=== PATIENT | female | born 1935 | race Caucasian/White ===

== ENCOUNTER 2017-06-01 06:48 | Day surgery (SDC) | payer MEDICARE, BC ==
[~2017-06-01 06:48] MED LIST: RINGERS SOLUTION,LACTATED 1,000 ML IV PRN
[2017-06-01] MEDS ORDERED: RINGERS SOLUTION,LACTATED 1,000 ML IV ONE (07:45)
[2017-06-01] MEDS ORDERED: RINGERS SOLUTION,LACTATED 1,000 ML IV PRN (08:19)
[2017-06-01 09:21] VITALS: BP 119/97
--- NOTE | 2017-06-01 14:10 | OR ---
Operative Report - Dictated Report Narrative: OPERATIVE REPORT DATE OF OPERATION: 06/01/2017 PREOPERATIVE DIAGNOSIS: History of colon polyp. No recent dedicated colon studies POSTOPERATIVE DIAGNOSIS: Normal colonoscopy OPERATION: Colonoscopy SURGEON: Nat Cao MD ANESTHESIA: MARLYS Chaidez CRNA INDICATIONS FOR PROCEDURE: The patient is an 82-year-old female referred by Dr. Dr. Dougherty. She had a tubular adenoma removed in 2004 and a hyperplastic polyp removed in 2006. She has had no subsequent colon surveillance. There is no family history of colon cancer. The patient is currently asymptomatic FINDINGS: Normal colonoscopy to the cecum NARRATIVE OF PROCEDURE: The patient was identified in the holding area, and prior to the administration of anesthetic, a multidisciplinary timeout was observed. With the patient in the left lateral position and after the administration of intravenous sedation, the perineum was inspected. There was no evidence of pilonidal disease or skin breakdown. The external appearance of the anus was normal. Sphincter tone was good. The flexible fiberoptic colonoscope was inserted into the rectum which was insufflated with air. The rectal mucosa and submucosal vascular pattern appeared normal, the prep was seen to be complete. The scope was advanced through the sigmoid colon, up the descending colon, and around the splenic flexure where the triangular haustral architecture of the transverse colon was seen. The scope was advanced across the transverse colon, around the hepatic flexure to the cecum, where the confluence of tenia and the ileocecal valve were identified. The mucosa at this level appeared normal. The scope was then slowly withdrawn in a circular fashion so that all aspects of colonic mucosa were inspected. The colon was normal in course and caliber. The haustral architecture appeared well preserved throughout with no evidence of external compression. The mucosa and submucosal vascular pattern appeared normal, specifically there was no gross evidence to suggest colitis or inflammatory bowel disease and no AV malformations were seen. No diverticulosis was demonstrated. No polyps were encountered. The scope was gradually withdrawn to the level of the rectum. As much insufflated air as possible was removed. The scope was withdrawn from the patient and the procedure terminated. The patient tolerated the anesthetic and procedure well without complication and was transferred back to the ambulatory surgery area awake and in stable condition. The patient remained stable throughout a period of postoperative observation. She denied abdominal discomfort, was able to tolerate by mouth intake, and was up without assistance. I shared the operative findings with the patient and she was given copies of the photographs which appear in the medical record. She was discharged home with instructions not to engage in hazardous activity today , but may resume normal activity tomorrow, advance diet as tolerated. She is to continue those medications as listed in the history and physical exam. RECOMMENDATION: Colon surveillance in 10 years depending upon findings and symptoms Reviewed and electronically signed
== END 2017-06-01 06:49 | disposition home or self-care (01) ==
LOC: AMB 06:48
PROVIDERS: ATTEND Surgery
PROC: 0DJD8ZZ Inspection of Lower Intestinal Tract, Via Natural or Artificial Opening Endoscopic (ICD-10-PCS; principal; 2017-06-01 08:00)
DX: Z12.11 Encounter for screening for malignant neoplasm of colon (principal); I10 Essential (primary) hypertension; E78.5 Hyperlipidemia, unspecified; E03.9 Hypothyroidism, unspecified; K21.9 Gastro-esophageal reflux disease without esophagitis; Z68.24 Body mass index [BMI] 24.0-24.9, adult; Z86.010 Personal history of colon polyps

== ENCOUNTER 2018-07-21 08:00 | Inpatient (IN) | payer BC, MEDICARE ==
--- NOTE | 2018-07-14 12:06 | ANES ---
Anesthesia Pre Procedure Eval HOME MEDICATIONS Aspirin [Aspirin Enteric Coated] 81 mg PO DAILY 05/18/17 [Last Taken Unknown] Cholecalciferol (Vitamin D3) [Vitamin D] 2,000 unit PO DAILY 05/18/17 [Last Taken Unknown] Fluticasone Propionate [Flonase] 2 spray NS DAILY 05/18/17 [Last Taken Unknown] Hydrochlorothiazide [Hydrodiuril] 25 mg PO DAILY 05/18/17 [Last Taken Unknown] Levothyroxine Sodium [Synthroid] 75 mcg PO DAILY 05/18/17 [Last Taken Unknown] Loratadine [Claritin] 10 mg PO DAILY 05/18/17 [Last Taken Unknown] Multivitamins [Multivitamin Rosette] 1 cap PO DAILY 05/18/17 [Last Taken Unknown] Omeprazole [Prilosec] 20 mg PO DAILY 05/18/17 [Last Taken Unknown] Simvastatin [Zocor] 20 mg PO DAILY 05/18/17 [Last Taken Unknown] Wheat Dextrin [Benefiber] 1 tbs PO DAILY 05/18/17 [Last Taken Unknown] acetaminophen 325 mg tablet 650 mg PO TID tab 07/06/18 [Last Taken Unknown] Allergies/Adverse Reactions: Allergies Allergy/AdvReac Type Severity Reaction Status Date / Time No Known Allergies Allergy Verified 07/14/18 09:14 - Planned Procedure Planned Procedure: Left Total Hip Arthroplasty Medication List Reviewed:: Yes Allergies Verified: Yes Medical History (Last Reviewed 07/14/18 @ 12:03 by Judd Alexandra CRNA) No history of alcohol use Non-tobacco user Wears dentures Wears glasses Flowers esophagus Onset Date: ~2004 GERD (gastroesophageal reflux disease) Onset Date: Unknown Hip pain Onset Date: Unknown Hyperlipidemia Onset Date: Unknown Hypertension Onset Date: Unknown Hypothyroidism Onset Date: Unknown Seasonal allergies Onset Date: Unknown Melanoma Onset Date: Unknown Surgical History (Last Reviewed 07/14/18 @ 12:03 by Judd Alexandra CRNA) Colonoscopy planned Onset Date: ~2016 Encounter for removal of skin lesion Onset Date: ~03/2016 H/O cystoscopy Onset Date: ~2010 H/O vaginal surgery Onset Date: ~04/02/11 History of appendectomy Onset Date: ~1979 History of bladder surgery Onset Date: ~04/02/11 History of cholecystectomy Onset Date: Unknown History of esophagogastroduodenoscopy (EGD) Onset Date: ~2010 History of total abdominal hysterectomy Onset Date: Unknown Hx of cataract surgery Onset Date: ~2015 S/P colon resection Onset Date: Unknown Tonsillectomy planned Onset Date: ~194 Uterosacral ligament fixation Onset Date: ~04/02/11 Family History (Last Reviewed 07/14/18 @ 12:03 by Judd Alexandra CRNA) Brother Leukemia Daughter Diabetes Father CVA (cerebral vascular accident) Cancer Mother CAD (coronary artery disease) Sister Cancer - Family Anesthesia History Family History:: no untoward family reactions to anesthesia, no familial bleeding tendencies, no family history of clotting disorders, no family history of premature - Airway/Neck/Teeth Within Normal Limits:: Yes Denture Type: Full- Upper & Lower Neck Exam: non-tender, full range of motion Mallampatti Score: 1 Thyromental (T-M) distance: > 6 cm Mandibulo Hyoid distance: > 3 cm - Respiratory Respiratory: chest non-tender, lungs clear, normal breath sounds, no respiratory distress Smoking Status: Never smoker Sleep Apnea currently treated: No Sleep Apnea by current assessment: No - Cardiovascular Patient History - Cardiac/Respiratory: Hypertension Tolerates Activity: Fair Heart Sounds: S1 & S2, Regular - Anesthesia Assessment and Plan ASA Class: PS, II Anesthesia Type Plan: Spinal Planned difficult intubation/equipment available: No
[~2018-07-21 08:00] MED LIST changes: -RINGERS SOLUTION,LACTATED 1,000 ML IV PRN; +ROPIVACAINE HCL/PF 100 MG, EPINEPHrine 0.2 MG, KETOROLAC TROMETHAMINE 15 MG in NORMAL S... IJ PRN; +ceFAZolin SODIUM 1 GM VIAL IV PRN
[2018-07-21] MEDS ORDERED: TRANEXAMIC ACID 1,000 MG in NORMAL SALINE 100 ML IV ONE (09:04)
[2018-07-21] MEDS ORDERED: MORPHINE SULFATE 15 MG TABLET.SA PO SCH (09:15)
[2018-07-21] MEDS: RINGER'S SOLUTION,LACTATED 1,000 ML IV PRN ×3 (09:41→15:00)
[2018-07-21] MEDS ORDERED: ONDANSETRON HCL/PF 2 MG/ML VIAL IV PRN (12:43)
[2018-07-21] MEDS ORDERED: ZOLPIDEM TARTRATE 5 MG TABLET PO PRN (12:43)
[2018-07-21] MEDS ORDERED: MORPHINE SULFATE 2 MG/ML DISP.SYRIN IV PRN (12:43)
[2018-07-21] MEDS ORDERED: MAGNESIUM HYDROXIDE 30 ML UDC PO PRN (12:43)
[2018-07-21] MEDS ORDERED: DEXTROSE 5%-LACTATED RINGERS 1,000 ML IV PRN (12:43)
[2018-07-21] MEDS ORDERED: MAG HYDROX/ALUMINUM HYD/SIMETH 30 ML UDC PO PRN (12:43)
[2018-07-21] MEDS ORDERED: ACETAMINOPHEN 500 MG TABLET PO PRN (12:43)
[2018-07-21] MEDS ORDERED: diphenhydrAMINE HCL 50 MG/ML VIAL IV PRN (12:43)
--- NOTE | 2018-07-21 12:43 | OR ---
Operative Report - Dictated Report Narrative: Date: 07/21/2018 Preoperative diagnosis: Left hip degenerative joint disease. Postoperative diagnosis: Left hip degenerative joint disease. Procedure: Left Total hip arthroplasty. Surgeon: Gelacio Shelley M.D. Mold Design Engineer: Siddhartha Thomas PA-C Anesthesia: Spinal and local periarticular joint injection. Complications: None Specimens: Bone for disposal. Estimated blood loss: 150 milliliters. Retained implants: Depuy [place] size 3 femoral stem standard offset. Size 48 millimeter outside diameter 3-hole [place] Gription acetabular cup. 48 millimeter outside by 32 millimeter inside diameter highly cross-linked acetabular liner. 32 millimeter diameter +1.5 millimeter cobalt chromium femoral head. Cancellous 6.5mm screw 30 millimeter length Indications: Mrs. Ann is a 83-year-old female who has had long-standing left hip pain and arthrosis. This patient was followed in my clinic for period of time with significant complaints of left hip pain consistent with arthritic changes. She failed conservative measures including but not limited to activity modification, passage of time, medications, and other conservative measures. Patient wished to proceed with surgical treatment. The risks, benefits, and alternatives were discussed in clinic. The risks of , blood clots, bleeding, infection, nerve/tendon blood vessel/ injury, malposition of components, dislocation and/or instability of joint, intraoperative fracture, postoperative limited range of motion, persistent pain, failure of components, and need for additional procedures. Patient wished to proceed. Consent was obtained after answering all questions. Procedure: After marking the correct extremity on the floor, the patient was taken to the operating room. A timeout was performed. IV antibiotics consisting of Ancef were administered prior to the procedure. A spinal anesthetic was induced by anesthesia. A Lu catheter was inserted. The patient was then transitioned to a lateral position on a well-padded pegboard. An axillary roll was placed. The head was in neutral position. The non- operative down leg was well-padded with SCD and ANGELIKA hose in place. The arms were supported and padded to protect from any undue pressure on the bony prominences and nerves. A well-padded anterior and posterior pelvic and chest posts were secured in order to maintain a stable position of the pelvis. This was placed so that the pelvis was perpendicular to the floor. The body was in line with the pelvis. Once it was felt that we had protected all the bony prominences and the patient was well secured with a safety belt as well, the leg was pre-scrubbed with alcohol, prepped and draped in a standard sterile fashion. A standard anterior lateral hip incision was marked out over the greater trochanter. Ioban drapes were then placed. The skin incision was then made. Sharp dissection with a scalpel utilizing cautery for hemostasis was carried out down to the gluteus and iliotibial band fascia. This was split in line with the skin incision. The greater trochanter bursa was excised. The anterior and posterior margins of the abductor tendon were identified. The anterior 1/2-1/3 of the tendon was tagged and reflected off the greater trochanter leaving a sleeve of tendon for repair at the completion of the case. This exposed the underlying hip joint capsule. A limb length stitch was placed in the skin and referencedd off a laury on the greater trochanter for evaluation of intraoperative limb lengths. An inverted T-type capsulotomy was made extending this up to the brim of the acetabulum. Using Homans to assist with elevation of the soft tissues off the anterior, superior, and inferior aspects of the femoral neck, the hip was then placed in a figure 4 position and the femoral head was dislocated. With the leg in an externally rotated and adducted position, the cutting flag was utilized in order to laury for a standard femoral neck cut approximately a fingerbreadth above the level of the lesser trochanter. This was done with reference to pre-operative films and overall alignment. This was done while protecting the surrounding soft tissues with Homans. The femoral head was then removed and sized for guidance on preparation of the acetabulum. It was noted that there was loss of articular cartilage on both the femoral head and weightbearing portions of the acetabulum. We then returned the leg to the table and turned our attention to the acetabulum. While protecting the surrounding soft tissues, the labrum and remaining tissue in the fovea were excised using a scalpel and cautery. A series of reamers up to size 48 millimeter were utilized to prepare the acetabulum. The final reamer had good purchase and exposed the bleeding subchondral bone. The acetabulum was then thoroughly irrigated ensuring that all bony and cartilaginous materials were removed, and the final acetabular shell was impacted into place. This was placed in approximately 45 degrees of abduction and 20 degrees of anteversion utilizing the outrigger and body axis for alignment. This had a good press fit. 1 6.5mm cancellous screw was placed in the superior posterior quadrant of the acetabulum. The shell was then thoroughly irrigated and the final polyethylene was impacted into place ensuring that it seated completely. This was then protected with a sponge while we returned our attention to the femur. With the leg in a figure 4 position, utilizing Homans for soft tissue protection , a box cutting osteotome, followed by Charnley awl, followed by serial reamers and broaches were utilized in order to prepare the femur. It was found that a size 3 broach gave good axial and rotational stability. The calcar reamer was utilized in order to clean up the cut edges. The proximal femur was visualized to ensure that there were no signs of fracture. A series of heads and necks were trialed. It was found that a standard neck and a + 1.5 femoral head gave good overall stability. There was minimal longitudinal instability. With the leg in the position of sleep, the femoral head was well covered. Hip range of motion was able to reach full extension and external rotation to greater than 75 degrees prior to impingement along the posterior acetabulum. The hip was able to be flexed to greater than 90 degrees with internal rotation greater than 60 degrees prior to anterior impingement. The limb lengths were near equal based on comparison to the contralateral side and the prior placed limb length stitch. At this point it was felt these were the appropriately sized femoral components as well as neck and femoral head. The trial implants were removed. The femur was thoroughly irrigated. The final implants were impacted into place, and the hip was reduced. After ensuring that there was no damage to the proximal femur , the standard periarticular joint injection of ropivacaine, Toradol, and epinephrine were injected into the joint capsule and surrounding soft tissues. Anesthesia then administered intravenous tranexamic acid. The capsule was repaired with a single interrupted #1 Vicryl. The abductor tendon was repaired to the greater trochanter utilizing #5 Ethibond through drill holes. This was oversewn with #1 Vicryl. The fascia was closed with interrupted #1 Vicryl. The wounds were thoroughly irrigated as we closed in layers. The deep and subcutaneous fat layers were closed with 0 and 3-0 Vicryl respectively. The subcutaneous tissue was closed with a running 3-0 Vicryl and the skin with katherine. All sponge, needle, blade, and instrument counts were correct prior to closing the wounds. Sterile dressings consisting of Xeroform, 4 x 4's, and tape were applied. The patient was awoken and transferred to her hospital bed and then to the postanesthesia care unit in stable condition. Postoperative condition: The plan is to admit to the medical/surgical inpatient floor postoperatively. There will be a projected 1 to 3 day hospital stay. Postoperatively 24 hours of IV antibiotics, pain control, physical therapy, occupational therapy, and medical comanagement will be utilized. Patient will be weightbearing as tolerated with anterior hip precautions. Postoperative films will be obtained in the recovery room.
--- NOTE | 2018-07-21 12:58 | ANES ---
Post Anesthesia Discharge - Transfer of Care Transfer of Care handoff given to nurse: Yes - Discharge from PACU Discharge from PACU when meets criteria: Yes - Comfortable and alert
--- NOTE | 2018-07-21 13:39 | ANES ---
Post Anesthesia Assessment - Vital Signs Vitals: Last Vital Signs Temp 36.8 C 07/21/18 12:55 Pulse 60 07/21/18 13:25 Resp 12 07/21/18 13:25 BP 94/56 07/21/18 13:25 Pulse Ox 96 07/21/18 13:25 Airway Patency: Normal - Mental Status Level Of Consciousness: Awake, Alert, Appropriate - Pain Level Pain Score: 0 - N/V Assessment Nausea/Vomiting Presence: None Dehydration:: No
[2018-07-21] MEDS: KETOROLAC TROMETHAMINE 15 MG/ML VIAL IV SCH ×2 (13:57→20:30)
[2018-07-21] MEDS: ceFAZolin SODIUM 1 GM in DEXTROSE 5 % IN WATER 100 ML IV SCH ×4 (16:39→21:17)
[2018-07-21] MEDS: oxyCODONE HCL/ACETAMINOPHEN 1 TAB TABLET PO PRN (18:56)
[2018-07-21] MEDS: SENNOSIDES/DOCUSATE SODIUM 1 TAB TABLET PO SCH (20:30)
[2018-07-21] MEDS: SIMVASTATIN 20 MG TABLET PO SCH (20:30)
[2018-07-22] MEDS: KETOROLAC TROMETHAMINE 15 MG/ML VIAL IV SCH ×4 (01:19→20:05)
[2018-07-22] MEDS: ceFAZolin SODIUM 1 GM in DEXTROSE 5 % IN WATER 100 ML IV SCH ×2 (04:46)
[2018-07-22 05:34] LABS: Hematocrit 31.3 % (37.0-47.0); Hemoglobin 10.3 gm/dL (12.5-16.0); Mean Cell Volume 92.9 fl (78-100); Mean Corpuscular Hemoglobin 30.6 pg (27-31); Mean Corpuscular Hgb Conc 32.9 g/dl (32-36); Mean Platelet Volume 9.8 fl (8-12.5); Platelet Count 179 K/mm3 (150-450); Red Blood Count 3.37 M/mm3 (4.2-5.4); Red Cell Distribution Width 12.9 % (11.5-14.0); White Blood Count 9.5 K/mm3 (4.0-10.5)
[2018-07-22 05:47] LABS: Anion Gap 8.7 mmol/L (6.8-13.8); Calcium * 8.1 mg/dL (7.9-10.9); Carbon Dioxide 31.1 mmol/L (24-32.6); Estimated Creat Clear 41.2; Potassium 3.8 mmol/L (3.4-4.6)
[2018-07-22] MEDS: LEVOTHYROXINE SODIUM 75 MCG TABLET PO SCH (07:02)
--- NOTE | 2018-07-22 08:40 | PN ---
Subjective - Date and Time Seen Date: 07/22/18 Time: 08:36 Subjective Narrative: Subjective: Reports no pain yesterday but some mild discomfort today in the hip. Was able to walk in the room with therapy. Pain is well-controlled. Voiding without any complications. Tolerating by mouth intake. Denies any nausea or vomiting. Denies calf pain. Slept well. Physical exam: Alert and oriented to person, place and time Left lower Extremity: Palpable dorsalis pedis pulse. Sensation grossly intact to light touch. Dressings clean and dry. Able to flex and extend ankle and toes. No excessive drainage. Calf and thigh are soft and nontender. Assessment: Postop day 1 status post left total hip arthroplasty. Plan: Due to the need for pain control, post-operative limited mobility, protection of the surgical site and joint, monitoring of the wound, and the management of chronic medical conditions, she requires continued inpatient care. Continue with physical and occupational therapy weightbearing as tolerated. Continue with anticoagulation. 24 hours postoperative prophylactic antibiotics. Pain control with goal to rely on oral medications. Continue bowel regimen. Will need 6 weeks with walker or assitive device to protect joint while ambulating during the recovery process. Discharge planning. Discontinue Lu catheter. Objective - Vitals Vitals: Last Vital Signs Temp 36.8 C 07/22/18 08:31 Pulse 67 07/22/18 08:31 Resp 16 07/22/18 08:31 BP 120/47 07/22/18 08:31 Pulse Ox 96 07/22/18 08:31 - Abnormal Lab Findings Abnormal Lab Findings: Abnormal Lab Results 07/22/18 07/22/18 Range/Units 05:26 05:26 RBC 3.37 L (4.2-5.4) M/mm3 Hgb 10.3 L (12.5-16.0) gm/dL Hct 31.3 L (37.0-47.0) % Chloride 96 L (97-106) mmol/L Random Glucose 111 H (70-110) mg/dL - Exam Constitutional: Present: Alert, Oriented x3 Cauti Physician Documentation - Urinary Catheter Management Urethral (Lu) Date of Insertion: 07/21/18 Time of Insertion: 11:10 Date of Removal: 07/22/18 Time of Removal: 07:08 Assessment/Plan - Problems/Diagnosis (1) Acute blood loss anemia Problem: Acute (2) Status post total hip replacement, left Problem: Acute (3) GERD (gastroesophageal reflux disease) Problem: Chronic (4) Hypertension Problem: Chronic (5) Hyperlipemia Problem: Chronic (6) Hypothyroid Problem: Chronic
[2018-07-22] MEDS: HYDROCHLOROTHIAZIDE 25 MG TABLET PO SCH (08:41)
[2018-07-22] MEDS: PSYLLIUM SEED 1 PACKET PACKET PO SCH (08:41)
[2018-07-22] MEDS: LORATADINE 10 MG TABLET PO SCH (08:41)
[2018-07-22] MEDS: FLUTICASONE PROPIONATE 120 SPRAY INHALER NS SCH (08:41)
[2018-07-22] MEDS: CHOLECALCIFEROL 1,000 UNIT CAPSULE PO SCH (08:42)
[2018-07-22] MEDS: MULTIVITAMINS 1 CAP CAPSULE PO SCH (08:42)
[2018-07-22] MEDS: ENOXAPARIN SODIUM 40 MG/0.4 ML SYRG SC SCH (11:15)
[2018-07-22] MEDS: oxyCODONE HCL/ACETAMINOPHEN 1 TAB TABLET PO PRN ×2 (12:56→20:07)
[2018-07-22] MEDS: SENNOSIDES/DOCUSATE SODIUM 1 TAB TABLET PO SCH (20:04)
[2018-07-22] MEDS: SIMVASTATIN 20 MG TABLET PO SCH (20:05)
[2018-07-23] MEDS: KETOROLAC TROMETHAMINE 15 MG/ML VIAL IV SCH ×2 (01:43→08:16)
[2018-07-23] MEDS: LEVOTHYROXINE SODIUM 75 MCG TABLET PO SCH (06:35)
[2018-07-23] MEDS: FLUTICASONE PROPIONATE 120 SPRAY INHALER NS SCH (08:19)
[2018-07-23] MEDS: CHOLECALCIFEROL 1,000 UNIT CAPSULE PO SCH (08:20)
[2018-07-23] MEDS: LORATADINE 10 MG TABLET PO SCH (08:20)
[2018-07-23] MEDS: PSYLLIUM SEED 1 PACKET PACKET PO SCH (08:20)
[2018-07-23] MEDS: MULTIVITAMINS 1 CAP CAPSULE PO SCH (08:20)
[2018-07-23] MEDS: HYDROCHLOROTHIAZIDE 25 MG TABLET PO SCH (08:20)
[2018-07-23] MEDS: ENOXAPARIN SODIUM 40 MG/0.4 ML SYRG SC SCH (12:22)
--- NOTE | 2018-07-23 14:23 | DS ---
(1) Degenerative joint disease of left hip Problem: Acute Qualifiers: Osteoarthritis type: primary Qualified Code(s): M16.12 - Unilateral primary osteoarthritis, left hip (2) Acute blood loss anemia Problem: Acute (3) Status post total hip replacement, left Problem: Acute (4) GERD (gastroesophageal reflux disease) Problem: Chronic (5) Hypertension Problem: Chronic (6) Hyperlipemia Problem: Chronic (7) Hypothyroid Problem: Chronic Description of Stay: Mrs. Ann was admitted to the floor after undergoing left total hip arthroplasty. Tolerated this well. Was admitted to the floor postoperatively for 24 hours of IV antibiotics, pain control, medical comanagement, and occupational and physical therapy. OT and PT were consulted to assist with activities of daily living and ambulation. Was made weightbearing as tolerated with range of motion as tolerated with anterior hip precautions. Pain was initially controlled with IV regimen. This was transitioned to oral once tolerating a by mouth intake. Was resumed on home diet and medications. Had a Lu catheter inserted and the operating room which was discontinued on postoperative day 1. Lovenox SCD and ANGELIKA hose were utilized for DVT prophylaxis. Vital signs remained stable to the hospital course. Serial labs were obtained which showed a final hemoglobin of 10.3 grams. BMP was reviewed and was stable. Physical examination throughout the hospital course showed an extremity that had sensation that was intact to light touch, palpable pulses, a benign wound, motor intact to the toes, ankle, and knee. Once an oral pain regimen was tolerated and physical therapy goals were met, it was felt that they were stable for discharge to home. Instructions: Continue with weightbearing as tolerated and range of motion as tolerated with anterior hip precautions. Keep incision clean and dry. If you note any drainage or for comfort you can cover with dry gauze and tape. Change every 2- 3 days as needed. Continue with physical therapy. Resume home diet. Report any fever over 101.5 Fahrenheit, uncontrolled pain, increased drainage, foul odor of drainage, new or increased calf pain or shortness of breath, or any other significant complaints. A 325mg dialy aspirin will be started after finishing anticoagulation if not allergic. Continue with ANGELIKA hose on the operative extremity until instructed otherwise. No driving until instructed otherwise. Follow up in approximately 10-14 days. Procedures Performed: see notes below List Procedures: Left total hip arthroplasty Results and Findings: Lab Pending Results 07/22/18 05:26: WBC 9.5, RBC 3.37 L, Hgb 10.3 L, Hct 31.3 L, MCV 92.9, MCH 30.6 , MCHC 32.9, RDW 12.9, Plt Count 179, MPV 9.8 07/22/18 05:26: Sodium 132, Plasma Sodium 132, Potassium 3.8, Chloride 96 L, Carbon Dioxide 31.1, Anion Gap 8.7, BUN 16, Creatinine 0.84, Est GFR (Non-Af Amer) 69, BUN/Creatinine Ratio 19.0, Random Glucose 111 H, Calcium 8.1 Discharge Location: Home Disposition: Home self-care Condition: Good Discharge Activity: Weight bearing - with anterior hip precautions Discharge Diet: Low salt, Low fat/chol Referrals: Armando Dougherty MD [Primary Care Provider] - Additional Patient Instructions (free text): Outpatient Physical Therapy at [facility] Rehab appointment is for ThursdayJuly 27 at 1:30pm. Follow up Orthopedic Dr Shelley appointment on August 05 at 9: 45am. Complete Home Medications List: Complete Home Medication List: Cholecalciferol (Vitamin D3) [Vitamin D3] 2,000 unit PO DAILY 05/18/17 Fluticasone Propionate [Flonase] 2 spray NS DAILY 05/18/17 Hydrochlorothiazide [Hydrodiuril] 25 mg PO DAILY 05/18/17 Levothyroxine Sodium [Synthroid] 75 mcg PO DAILY 05/18/17 Loratadine [Claritin] 10 mg PO DAILY 05/18/17 Multivitamins [Multivitamin Rosette] 1 cap PO DAILY 05/18/17 Simvastatin [Zocor] 20 mg PO DAILY 05/18/17 Wheat Dextrin [Benefiber] 1 tbs PO DAILY 05/18/17 Benzonatate [Tessalon Perle] 100 mg PO TID 07/21/18 Calcium Carbonate [Tums] 300 mg PO QID PRN 07/21/18 Enoxaparin Sodium [Lovenox] 40 mg SC Q24H #7 disp.syrin 07/23/18 Morphine Sulfate [Ms Contin] 15 mg PO ONCE #20 tablet.sa 07/23/18 Sennosides/Docusate Sodium [Senokot-S] 2 tab PO HS #30 tab 07/23/18 oxyCODONE HCL/ACETAMINOPHEN [Percocet 5 MG/325 MG] 2 tab PO Q4H PRN #90 tablet 07/23/18
[2018-07-23] MEDS: oxyCODONE HCL/ACETAMINOPHEN 1 TAB TABLET PO PRN (14:30)
[2018-07-23 14:57] VITALS: BP 119/41
== END 2018-07-23 14:57 | disposition home or self-care (01) | DRG 470 ==
LOC: MS 08:26
PROVIDERS: ADMIT Orthopaedic Surgery; ATTEND Orthopaedic Surgery
CPT/HCPCS: 36415; 73502; 80048; 85027; 97110; 97116; 97161; 97165; 97535